=== PATIENT | male | born 1985 | race Caucasian/White ===

== ENCOUNTER 2016-06-20 09:22 | Emergency (ER) | payer OTHER ==
[~2016-06-20] VITALS: Ht 185.4 cm; Wt 102.1 kg
[2016-06-20 09:22] VITALS: BP 125/93
[2016-06-20] MEDS ORDERED: NOHOMEMEDICATIONS (09:24)
[2016-06-20] MEDS ORDERED: GUAIFEN-CODEIN120 ML PO (09:39)
[2016-06-20] MEDS ORDERED: VENTOLIN HFA 1818 GM INH (09:39)
== END 2016-06-20 11:44 | disposition left against medical advice (07) ==
LOC: ER 09:22
DX: J20.8 Acute bronchitis due to other specified organisms (principal); Z87.891 Personal history of nicotine dependence